=== PATIENT | female | born 1960 | race Caucasian/White ===

== ENCOUNTER 2020-11-12 06:08 | Day surgery (SDC) | payer MEDICARE, MEDICAID ==
[2020-11-11 10:17] VITALS: BMI 22.6
[2020-11-12] MEDS ORDERED: Midazolam HCl 2 mg/2 ml Vial ONE (07:12)
[2020-11-12] MEDS ORDERED: Lidocaine 1% PF 5 ML VIAL ONE (07:42)
[2020-11-12] MEDS ORDERED: PROPOFOL 200 MG/20 ML VIAL ONE (07:42)
== END 2020-11-12 09:43 | disposition home or self-care (01) ==
LOC: SDC 06:08
PROVIDERS: ATTEND Internal Medicine Gastroenterology
PROC: 0DBH8ZX Excision of Cecum, Via Natural or Artificial Opening Endoscopic, Diagnostic (ICD-10-PCS; principal; 2020-11-12)
PROC: 0DBL8ZX Excision of Transverse Colon, Via Natural or Artificial Opening Endoscopic, Diagnostic (ICD-10-PCS; 2020-11-12)
DX: Z12.11 Encounter for screening for malignant neoplasm of colon (principal); D12.0 Benign neoplasm of cecum; D12.3 Benign neoplasm of transverse colon; K57.30 Diverticulosis of large intestine without perforation or abscess without bleeding; K59.89 Other specified functional intestinal disorders; E78.5 Hyperlipidemia, unspecified; E03.9 Hypothyroidism, unspecified; M81.0 Age-related osteoporosis without current pathological fracture; F84.0 Autistic disorder; F73 Profound intellectual disabilities; G40.909 Epilepsy, unspecified, not intractable, without status epilepticus; E11.9 Type 2 diabetes mellitus without complications; Z86.010 Personal history of colon polyps; Z79.82 Long term (current) use of aspirin; Z79.83 Long term (current) use of bisphosphonates; Z79.84 Long term (current) use of oral hypoglycemic drugs; Z79.899 Other long term (current) drug therapy; Z88.8 Allergy status to other drugs, medicaments and biological substances
CPT/HCPCS: 88305; J2250; J2704